=== PATIENT | female | born 1965 | race Caucasian/White ===

== ENCOUNTER → 2017-10-03 | Outpatient (CLI) | payer BC | LOC: MC.RAD 14:40 | DX: Z12.31 Encounter for screening mammogram for malignant neoplasm of breast (principal) ==

== ENCOUNTER → 2019-05-28 | Outpatient (CLI) | payer BC | LOC: MC.RAD 14:19 | DX: Z12.31 Encounter for screening mammogram for malignant neoplasm of breast (principal); N63.10 Unspecified lump in the right breast, unspecified quadrant ==

== ENCOUNTER → 2019-06-01 | Outpatient (CLI) | payer BC | LOC: MC.RAD 10:00 | DX: N60.01 Solitary cyst of right breast (principal); N63.11 Unspecified lump in the right breast, upper outer quadrant ==

== ENCOUNTER → 2023-01-24 | Outpatient (CLI) | payer BC | LOC: MC.RAD 14:07 | DX: Z12.31 Encounter for screening mammogram for malignant neoplasm of breast (principal) ==

== ENCOUNTER 2023-10-21 07:05 | Day surgery (SDC) | payer BC ==
[~2023-10-21] VITALS: Ht 160 cm; Wt 54.3 kg
[2023-10-21] VITALS (12 sets, daily range): BP systolic 106–127; BP diastolic 53–81; PULSE 70–90; TEMP 97.4–99
[2023-10-21] MEDS ORDERED: TAZTIA240 (07:45)
[2023-10-21] MEDS ORDERED: INDERAL 10MG10 MG PO (07:46)
[2023-10-21] MEDS ORDERED: MULTI VITAMINS1 TAB PO (07:46)
[2023-10-21] MEDS ORDERED: COLACE 100100 MG/CAP PO (09:48)
[2023-10-21] MEDS ORDERED: NORCO 325 MG-51 TAB PO (09:48)
--- NOTE | 2023-10-21 13:30 | NUR ---
PATIENT ADMITED INTO ROOM 323 POST OP. ORIENTED BUT DROWSY. VSS. NO COMPLAINTS. HEAD TO TOE ASSESSMENT WNL. ABD LAP SITES X6 WITH GLUED CLOSURE. TOLERATING LIQUIDS. IV FLUIDS INFUSING INTO LEFT HAND IV. ORIENTED TO ROOM. FAMILY AT BEDSIDE. NO OTHER NEEDS AT THIS TIME. CALL LIGHT IN REACH.
--- NOTE | 2023-10-21 19:11 | NUR ---
report received from bianca padgett. pt resting in bed watching tv. pt just ordered dinner. pt denies pain. call light in place. all needs met at this time.
--- NOTE | 2023-10-21 20:08 | NUR ---
shift report complete, see documentation. pt denies pain but reports abd pressure. pt requests to walk the unit tonight. tolerated tylenol well. call light in place. all needs met at this time.
[2023-10-22 01:00] VITALS: BP_SYST 108
--- NOTE | 2023-10-22 03:48 | NUR ---
pt resting well tonight, equal and unlabored breaths noted. pt walked the unit with staff and did well. pt reported she was less drowsy and it felt good to walk. pt has not taken anything for pain. call light in place. all needs met at this time.
[2023-10-22 03:52] VITALS: BP 107/68; PULSE 87; TEMP 98.2
[2023-10-22 05:00] VITALS: BP_SYST 107
--- NOTE | 2023-10-22 06:19 | NUR ---
pt anuj colunga'yvrose per orders. pt tolerated well. call light in place. all needs met at this time.
[2023-10-22 07:05] VITALS: BP 124/76; PULSE 75; TEMP 99
--- NOTE | 2023-10-22 07:30 | NUR ---
Completed shift assessment. Pt. c/o pain when repsotioning, denies pain otherwise. Reported that she had not voided since leslie was discontinued. Observed six surgical stab sites w/ edges well approximated. Pt. in bed eating breakfast w/ call light in reach.
--- NOTE | 2023-10-22 08:25 | NUR ---
Pt. reported she had voided. Emptied 350 mL clear yellow urine from hat. Observed pt. while ambulating. Steady gait. Pt. c/o increased pain. Denies need for analgesics. Pt. at bedside w/ call light in reach.
[2023-10-22 09:00] VITALS: BP_SYST 124
--- NOTE | 2023-10-22 09:19 | NUR ---
[employer] factory worker met with patient to discuss discharge planning. Pt lives in [place]. Her father is, Cory [phone]. She sees Rupali Malagon for PCP needs and does not use any DME. She is independent with all ADLS. She does not have a DPOA-HC and declined one at this time. Pt intends to retun home upon discharge. Discharge Plan: Home
--- NOTE | 2023-10-22 09:56 | NUR ---
Pt. sitting up in chair. Pt. is a&OX3, assessment complete. INT to lt. hand patent. Abd. incisions well approximated. Pt. reports pain to abd. at a 4 on pain scale. Pt. denies the need for pain meds at this time.
--- NOTE | 2023-10-22 10:07 | NUR ---
Initial visit; Patient thanked Wharf Operator for stopping by and stated she is about to be discharged from the hospital. Wharf Operator wished patient well and offered God's blessings.
--- NOTE | 2023-10-22 10:20 | NUR ---
Pt. ready for discharg. INT discontinued from lt. hand. Reviewed discharge paperwork. Pt. voices understanding. Pt. dressed and escorted out by wheelchair.
--- NOTE | 2023-10-22 10:30 | NUR ---
Pt. discharged via w/c to POV w/ student nurse. Ambulated from w/c to car.
== END 2023-10-22 10:20 | disposition home or self-care (01) ==
LOC: SDCO 07:05 → SURG 13:20 → SDCO 10-22 10:20 → SURG 10-22 11:56 → SDCO 11-11 11:30
DX: N99.3 Prolapse of vaginal vault after hysterectomy (principal); F17.210 Nicotine dependence, cigarettes, uncomplicated
CPT/HCPCS: OP; A4314; A9284; C1781; J0690; J1100; J1200; J1650; J2405; J2704; J3010; J7030; J7120